=== PATIENT | female | born 1995 | race African-American/Black ===

== ENCOUNTER 2020-01-12 01:58 | Emergency (ER) | payer MEDICAID, OTHER ==
[~2020-01-12] VITALS: Ht 175.3 cm; Wt 122.0 kg
[~2020-01-12 01:58] MED LIST: NO MEDICATIONS REPORTED
[2020-01-12 02:05] VITALS: BP 138/74
[2020-01-12] MEDS ORDERED: ACETAMINOPHEN 325MG TABLET PO ONE (03:30)
== END 2020-01-12 05:21 | disposition home or self-care (01) ==
LOC: ER 01:58
DX: M25.511 Pain in right shoulder (principal); V47.6XXA Car passenger injured in collision with fixed or stationary object in traffic accident, initial encounter; Y93.89 Activity, other specified; Y92.488 Other paved roadways as the place of occurrence of the external cause
CPT/HCPCS: 73030; 99283